=== PATIENT | male | born 1940 | race Caucasian/White ===

== ENCOUNTER → 2017-04-21 | Outpatient (CLI) | payer OTHER ==
[~2017-04-21] MED LIST: ASPIRIN PO; ATENOLOL PO; CAFFEINE200 M1 PO; CARAFATE 1 GM TA1 GM PO; CO Q-1010 MG PO; FISH OIL 1,0001 EAC5 PO; FLOMAX0.4 MG PO; LEVAQUIN 500 M500 M2 PO; LOVASTATIN 20 M20 MG PO; PRILOSEC 20 MG20 MG PO
== END ==
LOC: M.CT 13:14
DX: Z13.6 Encounter for screening for cardiovascular disorders (principal)